=== PATIENT | female | born 1985 | race African-American/Black ===

== ENCOUNTER 2019-09-29 19:43 | Emergency (ER) | payer OTHER, SELFPAY ==
--- OUTSIDE RECORDS SUMMARY | 2019-09-29 19:45 | XMS REPORT ---
:1985 [facility] Address [address] [place] [address] [address]. [address] [place] [address] Care Team Providers Name Role Phone Unavailable Unavailable Unavailable Problems This patient has no known problems. Allergies, Adverse Reactions, Alerts This patient has no known allergies or adverse reactions. Medications This patient has no known medications.
[2019-09-29] MEDS ORDERED: dexAMETHasone 10 MG/ML VIAL ONE (20:11)
--- NOTE | 2019-09-29 20:29 | ER ---
Nurse's Notes [facility] Name: Max Johnson Age: 33 yrs Sex: Female : 1985 Arrival Date: 09/29/2019 Time: 19:45 Bed 26 Private MD: Diagnosis: Dental caries;Localized allergic reaction Presentation: 09/29 19:47 Presenting complaint: Patient states: She took an unknown antibiotic from a friend an aj1 hour ago and now her lower lip is swollen. Denies shortness of breath. Transition of care: patient was not received from another setting of care. Onset: The symptoms/episode began/occurred suddenly. Anaphylaxis evaluation. Onset of symptoms was September 29, 2019. Risk Assessment: Do you want to hurt yourself or someone else? Patient reports no desire to harm self or others. Initial Sepsis Screen: Does the patient meet any 2 criteria? No. Patient's initial sepsis screen is negative. Does the patient have a suspected source of infection? No. Patient's initial sepsis screen is negative. Care prior to arrival: None. 19:47 Method Of Arrival: Ambulatory aj 19:47 Acuity: FATMATA 3 aj1 Triage Assessment: 19:50 General: Appears in no apparent distress. comfortable, Behavior is calm, cooperative, aj1 appropriate for age. Pain: Denies pain. Neuro: Level of Consciousness is awake, alert, obeys commands. Cardiovascular: Patient's skin is warm and dry. Respiratory: Airway is patent Respiratory effort is even, unlabored, Respiratory pattern is regular, symmetrical. 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 - Social history:: Smoking status: Patient/guardian denies using tobacco. - Ebola Screening: : Patient denies travel to an Ebola-affected area in the 21 days before illness onset. - Family history:: not pertinent. - Hospitalizations: : No recent hospitalization is reported. Screenin:43 Abuse screen: Denies threats or abuse. Nutritional screening: No deficits noted. sr5 Tuberculosis screening: No symptoms or risk factors identified. Fall Risk None identified. Assessment: 20:43 Reassessment: Upon discharge, pt remains AA\\T\\Ox4, equal unlabored resp, skin sr5 warm/dry/nc, steady gait out of ER. 20:50 Reassessment: When cleaning room, a $1 bill found. Patient's home phone number called sr5 with message saying "caller unavailable". Vital Signs: 19:50 BP 150 / 93; Pulse 89; Resp 18; Temp 97.0; Pulse Ox 100% on R/A; Weight 72.12 kg (R); aj1 Height 5 ft. 9 in. (175.26 cm) (R); Pain 0/10; 19:50 Body Mass Index 23.48 (72.12 kg, 175.26 cm) aj1 ED Course: 19:45 Patient arrived in ED. cl3 19:50 Triage completed. aj1 19:50 Arm band placed on Patient placed in an exam room. aj1 19:53 Jensen Shaffer MD is Attending Physician. rn 19:56 Geraldo Jones RN is Primary Nurse. sr5 20:43 Patient has correct armband on for positive identification. sr5 20:43 No provider procedures requiring assistance completed. Patient did not have IV access sr5 during this emergency room visit. Administered Medications: 20:13 Drug: Decadron 10 mg Route: IM; Site: right deltoid; sr5 20:45 Follow up: Response: No adverse reaction sr5 20:13 Drug: Clindamycin 300 mg Route: PO; sr5 20:45 Follow up: Response: No adverse reaction sr5 Outcome: 20:28 Discharge ordered by . rn 20:43 Patient left the ED. sr5 20:43 Discharged to home ambulatory, with family. sr5 20:43 Condition: good 20:43 Discharge instructions given to patient, family, Instructed on discharge instructions, follow up and referral plans. Demonstrated understanding of instructions, follow-up care, medications, Prescriptions given X 2. Signatures: Carisa Patel RN RN aj1 Jensen Shaffer MD MD rn Resecker, Sam, RN RN sr5 Félix Draper cl3
--- NOTE | 2019-09-29 20:29 | EDPHYS ---
Physician Documentation [facility] Name: Max Johnson Age: 33 yrs Sex: Female : 1985 Arrival Date: 09/29/2019 Time: 19:45 Bed 26 Private MD: ED Physician Jensen Shaffer HPI: 09/29 20:18 This 33 yrs old Black Female presents to ER via Ambulatory with complaints of Allergic rn Reaction. 20:18 The patient presents with itching, localized swelling. Onset: The symptoms/episode rn began/occurred today. Associated signs and symptoms: Pertinent positives: swelling, Pertinent negatives: fever, rash, shortness of breath. Possible causes: The patient has no known obvious cause for the symptoms. Severity of symptoms: At their worst the symptoms were mild in the emergency department the symptoms are unchanged. The patient has not experienced similar symptoms in the past. Reports noticed "something" on inner lower lip, was bothering her, and now left lower lip swollen, not painful. Not sure if got stung or bit her lip, no previous allergic reaction. No fever. No trauma. Reports lip itches. Also reports mild swelling to left jaw and molar pain on that side, but that has been going on for a week or more.. 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 - Social history:: Smoking status: Patient/guardian denies using tobacco. - Ebola Screening: : Patient denies travel to an Ebola-affected area in the 21 days before illness onset. - Family history:: not pertinent. - Hospitalizations: : No recent hospitalization is reported. ROS: 20:18 Constitutional: Negative for fever, chills, and weight loss, Eyes: Negative for injury, rn pain, redness, and discharge, ENT: + left lower lip swelling Neck: Negative for injury, pain, and swelling, Cardiovascular: Negative for chest pain, palpitations, and edema, Respiratory: Negative for shortness of breath, cough, wheezing, and pleuritic chest pain, Abdomen/GI: Negative for abdominal pain, nausea, vomiting, diarrhea, and constipation, MS/Extremity: Negative for injury and deformity, Neuro: Negative for headache, weakness, numbness, tingling, and seizure. Exam: 20:18 Constitutional: This is a well developed, well nourished patient who is awake, alert, rn and in no acute distress. Head/Face: Normocephalic, atraumatic. ENT: No intraoral swelling, no stridor, no tongue swelling, + isolated 2 cm of left lower lip swelling. No erythema/warmth/fluctuance. + poor dentition. + mild left buccal space swelling without fluctuance. Neck: Trachea midline, no thyromegaly or masses palpated, and no cervical lymphadenopathy. Supple, full range of motion without nuchal rigidity, or vertebral point tenderness. No Meningismus. Cardiovascular: Regular rate and rhythm. No pulse deficits. Respiratory: No increased work of breathing, no retractions or nasal flaring. Skin: Warm, dry with normal turgor. Normal color with no rashes, no lesions, and no evidence of cellulitis. MS/ Extremity: Pulses equal, no cyanosis. Neurovascular intact. Full, normal range of motion. Equal circumference. Neuro: Awake and alert, GCS 15, oriented to person, place, time, and situation. Cranial nerves II-XII grossly intact. Motor strength 5/5 in all extremities. Sensory grossly intact. Cerebellar exam normal. Normal gait. Vital Signs: 19:50 BP 150 / 93; Pulse 89; Resp 18; Temp 97.0; Pulse Ox 100% on R/A; Weight 72.12 kg (R); aj1 Height 5 ft. 9 in. (175.26 cm) (R); Pain 0/10; 19:50 Body Mass Index 23.48 (72.12 kg, 175.26 cm) aj1 MDM: 19:53 Patient medically screened. rn 20:27 Differential diagnosis: periodontal infection, localized allergic reaction, localized rn lip trauma. Data reviewed: vital signs, nurses notes, and as a result, I will discharge patient. Counseling: I had a detailed discussion with the patient and/or guardian regarding: the historical points, exam findings, and any diagnostic results supporting the discharge/admit diagnosis, the need for outpatient follow up, to return to the emergency department if symptoms worsen or persist or if there are any questions or concerns that arise at home. Special discussion: I discussed with the patient/guardian in detail that at this point there is no indication for admission to the hospital. It is understood, however, that if the symptoms persist or worsen the patient needs to return immediately for re-evaluation. Based on the history and exam findings, there is no indication for further emergent testing or inpatient evaluation. I discussed with the patient/guardian the need to see a dentist for further evaluation of the symptoms. Administered Medications: 20:13 Drug: Decadron 10 mg Route: IM; Site: right deltoid; sr5 20:45 Follow up: Response: No adverse reaction sr5 20:13 Drug: Clindamycin 300 mg Route: PO; sr5 20:45 Follow up: Response: No adverse reaction sr5 Disposition: 09/29/19 20:28 Discharged to Home. Impression: Dental caries, Localized allergic reaction. - Condition is Stable. - Discharge Instructions: Dental Pain, Angioedema. - Prescriptions for Clindamycin HCl 300 mg Oral Capsule - take 1 capsule by ORAL route every 6 hours for 10 days; 40 capsule. Prednisone 20 mg Oral Tablet - take 3 tablet by ORAL route once daily for 5 days; 15 tablet. - Medication Reconciliation Form, Thank You Letter, Antibiotic Education, Prescription Opioid Use form. - Follow up: Private Physician; When: As needed; Reason: Recheck today's complaints, Re-evaluation by your physician. - Problem is new. - Symptoms have improved. Signatures: Carisa Patel RN RN aj1 Jensen Shaffer MD MD rn Resecker, Sam, RN RN sr5 Corrections: (The following items were deleted from the chart) 20:28 20:27 Special discussion: I discussed with the patient/guardian in detail that at this rn point there is no indication for admission to the hospital. It is understood, however, that if the symptoms persist or worsen the patient needs to return immediately for re-evaluation. rn 20:43 20:28 09/29/2019 20:28 Discharged to Home. Impression: Dental caries; Localized sr5 allergic reaction. Condition is Stable. Forms are Medication Reconciliation Form, Thank You Letter, Antibiotic Education, Prescription Opioid Use. Follow up: Private Physician; When: As needed; Reason: Recheck today's complaints, Re-evaluation by your physician. Problem is new. Symptoms have improved. rn
[2019-09-29 20:52] VITALS: BP 150/93; TEMP 97; O2SAT 100
== END 2019-09-29 20:43 | disposition home or self-care (01) ==
LOC: ER 19:43
DX: K02.9 Dental caries, unspecified (principal)
CPT/HCPCS: 96372; 99283; J1100

== ENCOUNTER 2020-09-12 20:06 | Emergency (ER) | payer OTHER, SELFPAY ==
--- OUTSIDE RECORDS SUMMARY | 2020-09-12 20:08 | XMS REPORT | Continuity of Care Document ---
:1985 Author Organization [facility] t Address [address] [place] [address] [address]. [address] [place] [address] Care Team Providers Name Role Phone Unavailable Unavailable Unavailable Problems This patient has no known problems. Allergies, Adverse Reactions, Alerts This patient has no known allergies or adverse reactions. Medications This patient has no known medications. Procedures This patient has no known procedures. Results This patient has no known results.
[2020-09-12] MEDS ORDERED: dexAMETHasone 10 MG/ML VIAL ONE (21:33)
[2020-09-12] MEDS ORDERED: FAMOTIDINE 20 MG TAB ONE (21:33)
[2020-09-12] MEDS ORDERED: DIPHENHYDRAMINE 50 MG/ML VIAL ONE (21:33)
--- NOTE | 2020-09-12 21:36 | ER ---
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 Took Benadryl, no ca1 relief. Denies difficulty swallowing and breathing. Coronavirus screen: Client denies travel out of the [place] in the last 14 days. At this time, the client does not indicate any symptoms associated with coronavirus-19. Ebola Screen: Patient negative for fever greater than or equal to 101.5 degrees Fahrenheit, and additional compatible Ebola Virus Disease symptoms Patient denies exposure to infectious person. Patient denies travel to an Ebola-affected area in the 21 days before illness onset. No symptoms or risks identified at this time. Initial Sepsis Screen: Does the patient meet any 2 criteria? No. Patient's initial sepsis screen is negative. Does the patient have a suspected source of infection? No. Patient's initial sepsis screen is negative. Risk Assessment: Do you want to hurt yourself or someone else? Patient reports no desire to harm self or others. Onset of symptoms was September 12, 2020. 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 - Social history:: Smoking status: Patient denies any tobacco usage or history of. Screenin:08 Abuse screen: Denies threats or abuse. Denies injuries from another. Nutritional mg2 screening: No deficits noted. Tuberculosis screening: No symptoms or risk factors identified. Fall Risk None identified. Assessment: 22:07 General: Appears in no apparent distress. comfortable, Behavior is calm, cooperative. mg2 Pain: Denies pain. Neuro: Level of Consciousness is awake, alert, obeys commands, Oriented to person, place, time, situation. Cardiovascular: Capillary refill < 3 seconds Patient's skin is warm and dry. Respiratory: Airway is patent Respiratory effort is even, unlabored, Respiratory pattern is regular, symmetrical. GI: No signs and/or symptoms were reported involving the gastrointestinal system. : No signs and/or symptoms were reported regarding the genitourinary system. EENT: No signs and/or symptoms were reported regarding the EENT system. Derm:. Musculoskeletal: Swelling present in mouth. Vital Signs: 20:16 BP 131 / 78; Pulse 92; Resp 17 S; Temp 98.3(TE); Pulse Ox 100% on R/A; Weight 82.55 kg ca1 (R); Height 5 ft. 7 in. (170.18 cm) (R); Pain 0/10; 22:00 BP 128 / 80; Pulse 80; Resp 18; Temp 98; Pulse Ox 100% on R/A; mg2 20:16 Body Mass Index 28.50 (82.55 kg, 170.18 cm) ca1 ED Course: 20:07 Patient arrived in ED. cl3 20:18 Triage completed. ca1 20:19 Arm band placed on right wrist. ca1 21:03 Hunter Plaza, ALONDRA is PHCP. pm1 21:03 Jensen Shaffer MD is Attending Physician. pm1 21:17 Louie Aragon, MELY is Primary Nurse. mg2 22:08 Patient has correct armband on for positive identification. mg2 22:08 No provider procedures requiring assistance completed. Patient did not have IV access mg2 during this emergency room visit. Administered Medications: 21:24 Drug: Benadryl 25 mg Route: IM; Site: right deltoid; mg2 22:09 Follow up: Response: No adverse reaction; Marked relief of symptoms mg2 21:24 Drug: Decadron 10 mg Route: IM; Site: left deltoid; mg2 22:08 Follow up: Response: No adverse reaction; Marked relief of symptoms mg2 21:24 Drug: Pepcid 20 mg Route: PO; mg2 22:08 Follow up: Response: No adverse reaction; Marked relief of symptoms mg2 Outcome: 21:36 Discharge ordered by . pm1 22:08 Discharged to home ambulatory. mg2 22:08 Condition: stable 22:08 Discharge instructions given to patient, Instructed on discharge instructions, follow up and referral plans. medication usage, Demonstrated understanding of instructions, follow-up care, medications, Prescriptions given X 3. 22:09 Patient left the ED. mg2 Signatures: Hunter Plaza, ALONDRA SPORTS ATTORNEY pm1 Louie Aragon RN RN mg2 Flor Dwyer RN RN ca1 Félix Draper cl3
--- NOTE | 2020-09-12 21:36 | EDPHYS ---
Physician Documentation [facility] Name: Max Johnson Age: 34 yrs Sex: Female : 1985 Arrival Date: 09/12/2020 Time: 20:07 Bed 19 Private MD: ED Physician Jensen Shaffer HPI: 09/12 20:15 This 34 yrs old Black Female presents to ER via Ambulatory with complaints of Lips pm1 Swelling. 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 - Social history:: Smoking status: Patient denies any tobacco usage or history of. Vital Signs: 20:16 BP 131 / 78; Pulse 92; Resp 17 S; Temp 98.3(TE); Pulse Ox 100% on R/A; Weight 82.55 kg ca1 (R); Height 5 ft. 7 in. (170.18 cm) (R); Pain 0/10; 22:00 BP 128 / 80; Pulse 80; Resp 18; Temp 98; Pulse Ox 100% on R/A; mg2 20:16 Body Mass Index 28.50 (82.55 kg, 170.18 cm) ca1 MDM: 21:15 Patient medically screened. pm1 21:35 Data reviewed: vital signs. Data interpreted: Pulse oximetry: on room air is 100 %. pm1 Interpretation: normal. Counseling: I had a detailed discussion with the patient and/or guardian regarding: the historical points, exam findings, and any diagnostic results supporting the discharge/admit diagnosis, the need for outpatient follow up, to return to the emergency department if symptoms worsen or persist or if there are any questions or concerns that arise at home. Administered Medications: 21:24 Drug: Benadryl 25 mg Route: IM; Site: right deltoid; mg2 22:09 Follow up: Response: No adverse reaction; Marked relief of symptoms mg2 21:24 Drug: Decadron 10 mg Route: IM; Site: left deltoid; mg2 22:08 Follow up: Response: No adverse reaction; Marked relief of symptoms mg2 21:24 Drug: Pepcid 20 mg Route: PO; mg2 22:08 Follow up: Response: No adverse reaction; Marked relief of symptoms mg2 Disposition: 22:13 Co-signature as Attending Physician, Jensen Shaffer MD. rn Disposition: 09/12/20 21:36 Discharged to Home. Impression: Angioneurotic edema. - Condition is Stable. - Discharge Instructions: Angioedema. - Prescriptions for Benadryl 25 mg Oral Capsule - take 1 capsule by ORAL route every 6 hours As needed; 30 tablet. Pepcid 20 mg Oral Tablet - take 1 tablet by ORAL route every 12 hours for 10 days; 20 tablet. Prednisone 20 mg Oral Tablet - take 3 tablet by ORAL route once daily for 5 days; 15 tablet. - Medication Reconciliation Form, Thank You Letter, Antibiotic Education, Prescription Opioid Use form. - Follow up: Emergency Department; When: As needed; Reason: Worsening of condition. Follow up: Private Physician; When: 2 - 3 days; Reason: Recheck today's complaints, Continuance of care, Re-evaluation by your physician. - Problem is new. - Symptoms have improved. Addendum: 09/29/2020 15:32 Addendum: HPI: this 34 yrs old Black Female presents to the ED via ambulatory with p m1 complaints of Lips Swelling. 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 Location: Upper and lower lip. Greater on upper lip. Associated signs and symptoms: Negative for shortness of breath, chest pain, sore throat, rash. Severity: No change since onset. Home treatment: OTC Benadryl prior to arrival. Similar Symptoms: Has never had lip swelling in the past. She has not been recently seen by a physcian. 15:40 Addendum: ROS: Constitutional: Negative for fever, chills, and weight loss, Eyes: p m1 Negative for injury, pain, redness, and discharge, ENT: Negative for injury, pain, discharge, sore throat, ear pain, Positive for swelling of upper and lower lip. Back: Negative for injury and pain, Skin: Negative for injury, rash, and discoloration. Cardiovascular: Negative for chest pain. Respiratory: Negative for cough, shortness of breath, Abdomen/GI: Negative for abdominal pain, N/V/D, and constipation, Neuro: negative for dizziness, headache. 15:52 Addendum: Exam: Constitutional: This is a well developed, well nourished patient who is p m1 awake, alert, and in no acute distress. Head/Face: Normocephalic, atraumatic. Skin: Warm, dry with normal turgor. Normal color with no rashes, no lesions, and evidence of cellulitis. Mild swelling to medial aspect of upper lip and trace swelling to medial aspect of lower lip. ENT: External ears, ear canals, tympanic membranes without any acute changes bilaterally. Pharynx without any swelling or erythema. MS/Extremity: Pulses equal, no cyanosis. Neurovascular intact: FROM, Cardiovascular: Exam negative for acute changes, Rate: normal, Rhythm: regular, Pulses: no pulse deficits are appreciated, edema absent. Respiratory: the patient does not display signs of respiratory distress, Breath sounds clear to auscultation bilaterally, Neuro: exam negative for acute changes, Orientation: is normal, mentation is normal, Motor is normal. moves all fours. Signatures: Jensen Shaffer MD MD rn Marinas, Patrick, NP PATIENT REGISTRATION CLERK pm1 Louie Aragon RN RN mg2 Flor Dwyer RN RN ca1 Corrections: (The following items were deleted from the chart) 09/12 22:09 21:36 09/12/2020 21:36 Discharged to Home. Impression: Angioneurotic edema. Condition mg2 is Stable. Forms are Medication Reconciliation Form, Thank You Letter, Antibiotic Education, Prescription Opioid Use. Follow up: Emergency Department; When: As needed; Reason: Worsening of condition. Follow up: Private Physician; When: 2 - 3 days; Reason: Recheck today's complaints, Continuance of care, Re-evaluation by your physician. Problem is new. Symptoms have improved. pm1
[2020-09-15 13:51] VITALS: O2SAT 100
[2020-09-15 13:52] VITALS: BP 128/80; TEMP 98
== END 2020-09-12 22:09 | disposition home or self-care (01) ==
LOC: ER 20:06
DX: T78.3XXA Angioneurotic edema, initial encounter (principal)
CPT/HCPCS: 96372; 99283; J1200; J1100

== ENCOUNTER 2021-02-28 20:32 | Emergency (ER) | payer OTHER ==
--- OUTSIDE RECORDS SUMMARY | 2021-02-28 20:34 | XMS REPORT | Continuity of Care Document ---
:1985 Author Organization [facility] t Address [address] [place] [address] [address]. [address] [place] [address] Care Team Providers Name Role Phone Unavailable Unavailable Unavailable Problems This patient has no known problems. Allergies, Adverse Reactions, Alerts This patient has no known allergies or adverse reactions. Medications This patient has no known medications. Procedures This patient has no known procedures. Results This patient has no known results.
[2021-02-28 23:56] LABS: Absolute Lymphocytes (CBC) 1.2 K/uL (0.7-4.9); Basophils % 0.7 % (0-1.3); Hematocrit 35.8 % (36.0-45.0); Lymphocytes % 14.7 % (15.3-44.8); MPV 8.7 fL (7.6-11.3); RBC Red Blood Cell Count 3.92 M/uL (3.86-4.86)
[2021-03-01 00:04] LABS: Protime INR 1.13
[2021-03-01 00:33] LABS: BUN Blood Urea Nitrogen 6 mg/dL (7-18); Bicarbonate 30 mmol/L (21-32); Glucose Level 113 mg/dL (74-106); Potassium 3.1 mmol/L (3.5-5.1); Sodium Level 139 mmol/L (136-145)
--- NOTE | 2021-03-01 01:48 | ER ---
Nurse's Notes [facility] Name: Max Johnson Age: 35 yrs Sex: Female : 1985 Arrival Date: 02/28/2021 Time: 21:42 Bed 20 Private MD: Diagnosis: Facial Cellulitis;Dental abscess Presentation: 02/28 22:33 Chief complaint: Patient states: she started having left jaw pain yesterday and woke up bb today with her face swollen she thinks she has an abscess. Coronavirus screen: At this time, the client does not indicate any symptoms associated with coronavirus-19. Ebola Screen: No symptoms or risks identified at this time. Initial Sepsis Screen: Does the patient meet any 2 criteria? Temp <36.0*C (96.8*F)) or > 38.3*C (100.9*F). HR > 90 bpm. Yes Does the patient have a suspected source of infection? Yes: Bone or joint infection. Risk Assessment: Do you want to hurt yourself or someone else? Patient reports no desire to harm self or others. Onset of symptoms was February 27, 2021. 22:33 Method Of Arrival: Ambulatory bb 22:33 Acuity: FATMATA 3 bb Triage Assessment: 22:35 General: Appears uncomfortable, Behavior is calm, cooperative. Pain: Denies pain. EENT: bb left jaw swollen unable to open mouth all the way. Neuro: Level of Consciousness is awake, alert, obeys commands, Oriented to person, place, time, situation. Cardiovascular: Capillary refill < 3 seconds Patient's skin is warm and dry. Respiratory: Respiratory effort is even, unlabored, Respiratory pattern is regular. Derm: Skin is dry, Skin is normal, Skin temperature is warm. Musculoskeletal: Circulation, motion, and sensation intact. 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 - Social history:: Smoking status: Patient denies any tobacco usage or history of. Patient uses alcohol, occasionally. Patient/guardian denies using street drugs. Screenin:49 Abuse screen: Denies threats or abuse. Nutritional screening: No deficits noted. ea Tuberculosis screening: No symptoms or risk factors identified. Fall Risk IV access (20 points). Assessment: 23:49 General: Appears uncomfortable, Behavior is calm, cooperative, appropriate for age. ea Pain: Complains of pain in left side of head. Neuro: Level of Consciousness is awake, alert, obeys commands, Oriented to person, place, time. Cardiovascular: Patient's skin is warm and dry. Respiratory: Airway is patent Respiratory effort is even, unlabored, Respiratory pattern is regular, symmetrical. Derm: swelling to left jaw. 03/01 01:59 Reassessment: Patient and/or family updated on plan of care and expected duration. Pain ea level reassessed. Patient is alert, oriented x 3, equal unlabored respirations, skin warm/dry/pink. 03:30 Reassessment: Patient and/or family updated on plan of care and expected duration. Pain ea level reassessed. Patient is alert, oriented x 3, equal unlabored respirations, skin warm/dry/pink. 04:52 Reassessment: Patient and/or family updated on plan of care and expected duration. Pain ea level reassessed. Patient is alert, oriented x 3, equal unlabored respirations, skin warm/dry/pink. Discharge instruction given to patient verbalized the understanding of instruction. Pt left ED ambulatory accompanied by family. Vital Signs: 02/28 22:33 BP 137 / 76; Pulse 122; Resp 16 S; Temp 101(TE); Pulse Ox 97% on R/A; Weight 81.65 kg bb (R); Height 5 ft. 9 in. (175.26 cm) (R); Pain 0/10; 03/01 01:32 BP 126 / 93; Pulse 94; Resp 16 S; Temp 98.6(O); Pulse Ox 100% on R/A; bb 03:30 BP 128 / 78; Pulse 90; Resp 18; Pulse Ox 99% ; ea 04:45 BP 120 / 76; Pulse 90; Resp 18; Pulse Ox 99% ; ea 02/28 22:33 Body Mass Index 26.58 (81.65 kg, 175.26 cm) bb ED Course: 02/28 21:42 Patient arrived in ED. cf2 22:35 Triage completed. bb 22:35 Arm band placed on Patient placed in an exam room, on a stretcher, on pulse oximetry. bb 22:39 Prashanth Mendiola PA is PHCP. cp 22:39 Jensen Shaffer MD is Attending Physician. cp 23:43 Inserted saline lock: 22 gauge in right antecubital area, using aseptic technique. ea Blood collected. 23:49 Cristina Martinez, MELY is Primary Nurse. ea 23:50 Patient has correct armband on for positive identification. Bed in low position. Call ea light in reach. Side rails up X2. 02 01:11 CT Facial Bones W/ Con \T\ Mpr In Process Unspecified. EDMS 01:14 initiated a transfer with Radha Christiano from [facility] Transfer [place]. mw2 01:23 [facility] denied due to capacity. mw2 01:28 initiated a transfer with Shireen from [facility] Transfer [place]. mw2 01:58 [facility] denied due to capacity. mw2 02:00 No provider procedures requiring assistance completed. Patient transferred, IV remains ea in place. 02:14 initiated a transfer with Marcos from [facility] Transfer Center. mw2 02:25 [facility] denied due to capacity. mw2 02:26 initiated a transfer with Brianna from [facility]. [facility] is at saturation. mw2 02:30 initiated a transfer with S[facility] from [facility] Transfer [place]. [facility] denied due to mw2 capacity. 02:34 initiated a transfer with Es from [facility] Transfer [place]. They don't have OMF mw2 or any service that studies the face. Administered Medications: 02/28 23:50 Drug: NS 0.9% 1000 ml Route: IV; Rate: 1 bolus; Site: right antecubital; ea 03/01 02:00 Follow up: Response: No adverse reaction; IV Status: Completed infusion; IV Intake: ea 1000ml 02/28 23:50 Drug: morphine 4 mg Route: IVP; Site: right antecubital; ea 03/01 00:06 Follow up: Response: No adverse reaction ea 00:04 Drug: Tylenol 1000 mg Route: PO; ea 02:00 Follow up: Response: No adverse reaction ea 00:04 Drug: Clindamycin 900 mg Route: IVPB; Infused Over: 30 mins; Site: right antecubital; ea 01:35 Follow up: Response: No adverse reaction; IV Status: Completed infusion ea 03:46 Drug: fentaNYL (PF) 50 mcg Route: IVP; Site: right antecubital; ea 04:55 Follow up: Response: No adverse reaction ea 04:45 Drug: fentaNYL (PF) 25 mcg Route: IVP; Site: right antecubital; ea 04:55 Follow up: Response: Medication administered at discharge. ea Intake: 02:00 IV: 1000ml; Total: 1000ml. ea Outcome: 01:47 ER care complete, transfer ordered by MD. cp 02:00 Instructed on the need for transfer, Demonstrated understanding of instructions. ea 03:49 Discharge ordered by MD. rn 04:52 Discharged to home ambulatory, with family. ea 04:52 Condition: stable 04:55 Patient left the ED. ea Signatures: Dispatcher [employer] Nita Paul RN RN bb Nieto, Roman, MD MD rn Page, Corey, PA PA cp Antunez, Elena, RN RN ea [place]brook, MyKena 2 Madyson Paulino 2
--- NOTE | 2021-03-01 01:48 | EDPHYS ---
Physician Documentation [facility] Name: Max Johnson Age: 35 yrs Sex: Female : 1985 Arrival Date: 02/28/2021 Time: 21:42 Bed 20 Private MD: ED Physician Jensen Shaffer HPI: 02/28 23:00 This 35 yrs old Black Female presents to ER via Ambulatory with complaints of Facial cp Swelling, Abscess. 23:00 The patient presents with pain. cp 23:00 The problem is located in the left lower back molar and left lower jaw. Onset: The cp symptoms/episode began/occurred yesterday, and became worse this morning. Duration: The symptoms are continuous, and are steadily getting worse. Associated signs and symptoms: Pertinent positives: fever, inability to eat, left side facial swelling, Pertinent negatives: dysphagia, vomiting. 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 - Social history:: Smoking status: Patient denies any tobacco usage or history of. Patient uses alcohol, occasionally. Patient/guardian denies using street drugs. ROS: 23:05 Constitutional: Positive for fever, poor PO intake. cp 23:05 Eyes: Negative for injury, pain, redness, and discharge. cp 23:05 ENT: Positive for dental pain, Negative for ear pain, difficulty swallowing, difficulty handling secretions. 23:05 Neck: Negative for pain with movement, pain at rest, stiffness. 23:05 Cardiovascular: Negative for chest pain. 23:05 Respiratory: Negative for cough, shortness of breath, wheezing. 23:05 Abdomen/GI: Negative for abdominal pain, vomiting, diarrhea, constipation. 23:05 Skin: Positive for swelling, of the left side of face. 23:05 Neuro: Negative for altered mental status, headache, weakness. 23:05 All other systems are negative. Exam: 23:10 Constitutional: The patient appears in no acute distress, alert, awake, cp non-diaphoretic, non-toxic, well developed, well nourished. 23:10 Head/face: Noted is swelling, that is moderate, of the left cheek and left jaw, cp tenderness, that is severe, of the left jaw. 23:10 Eyes: Periorbital structures: appear normal, Pupils: equal, round, and reactive to light and accomodation, Extraocular movements: intact throughout, Conjunctiva: normal, no exudate, no injection, Sclera: no appreciated abnormality, Lids and lashes: appear normal, bilaterally. 23:10 ENT: External ear(s): are unremarkable, Ear canal(s): are normal, clear, TM's: dullness, bilaterally, Nose: is normal, Mouth: Lips: moist, Oral mucosa: moist, unable to open mouth due to pain and swelling, Posterior pharynx: Airway: no evidence of obstruction, patent. 23:10 Neck: ROM/movement: is normal, is supple, no meningismus, no nuchal rigidity. 23:10 Chest/axilla: Inspection: normal. 23:10 Cardiovascular: Rate: tachycardic, Rhythm: regular. 23:10 Respiratory: the patient does not display signs of respiratory distress, Respirations: normal, no use of accessory muscles, no retractions, labored breathing, is not present, Breath sounds: are clear throughout, no decreased breath sounds, no stridor, no wheezing. 23:10 Abdomen/GI: Exam negative for discomfort, distension, guarding, Inspection: abdomen appears normal. 23:10 Skin: no rash present. 23:40 ECG was reviewed by the Attending Physician. cp Vital Signs: 22:33 BP 137 / 76; Pulse 122; Resp 16 S; Temp 101(TE); Pulse Ox 97% on R/A; Weight 81.65 kg bb (R); Height 5 ft. 9 in. (175.26 cm) (R); Pain 0/10; 06/02 01:32 BP 126 / 93; Pulse 94; Resp 16 S; Temp 98.6(O); Pulse Ox 100% on R/A; bb 03:30 BP 128 / 78; Pulse 90; Resp 18; Pulse Ox 99% ; ea 04:45 BP 120 / 76; Pulse 90; Resp 18; Pulse Ox 99% ; ea 02/28 22:33 Body Mass Index 26.58 (81.65 kg, 175.26 cm) bb Procedures: 03:45 I \T\ D: Incision and drainage was performed for an abscess of the left left rn perimandibular region Incised with 22g needle. Drained moderate amount purulent fluid. serosanguinous fluid. the patient tolerated the procedure well, Used viscous lidocaine and needle aspirated left chula-mandibular abscess.. MDM: 02/28 22:46 Patient medically screened. cp 23:00 Differential diagnosis: dental caries, dental abscess, pericoronitis, gingivostomatitis.cp 03/01 01:44 Data reviewed: vital signs, nurses notes, lab test result(s), EKG, radiologic studies, cp CT scan, I have discussed the patient's presentation/case with the attending Emergency Department Physician;. Test interpretation: by ED physician or midlevel provider: ECG. Counseling: I had a detailed discussion with the patient and/or guardian regarding: the historical points, exam findings, and any diagnostic results supporting the discharge/admit diagnosis, lab results, radiology results, the need to transfer to another facility, [facility] does not immediately have the required specialist. 03:45 ED course: Attempted transfer for OMFS, unable to transfer given all systems around us rn at capacity or do not have OMFS. Tried [facility], [facility] system, [facility], [facility], [facility] system. Spoke with patient, decision made to aspirate abscess and cover with abx. Pt is going to f/u with dentist today. Cannot admit here either without facial coverage, explained all of this to patient and understands. Will dc home with double abx coverage and return precautions.. 03:45 Differential diagnosis: abscess, cellulitis. rn 02/28 22:52 Order name: CBC with Diff cp 02/28 22:52 Order name: BMP cp 02/28 22:52 Order name: PT-INR cp 02/28 22:52 Order name: Procalcitonin cp 02/28 22:52 Order name: Lactate cp 02/28 22:52 Order name: Blood Culture Adult (2) cp 02/28 22:52 Order name: CBC with Automated Diff; Complete Time: 00:39 EDMS 03/01 00:40 Interpretation: Normal except: HGB 11.9; HCT 35.8; UMAIR% 76.4; LYM% 14.7. cp 02/28 22:52 Order name: Basic Metabolic Panel; Complete Time: 00:39 EDMS 03/01 00:40 Interpretation: Normal except: K 3.1; GLUC 113; BUN 6. cp 02/28 22:52 Order name: Protime (+INR); Complete Time: 00:39 EDMS 02/28 22:52 Order name: Procalcitonin; Complete Time: 01:30 EDMS 02/28 22:53 Order name: Lactate; Complete Time: 00:39 EDMS 02/28 22:53 Order name: Blood Culture EDMS 03/01 02:35 Order name: SARS-COV-2 RT PCR EDMS 02/28 22:52 Order name: CT Facial Bones W/ Con \T\ Mpr cp 03/01 03:47 Order name: Wound Culture ea EC/01 23:40 Rate is 104 beats/min. Rhythm is regular. VA interval is normal. QRS interval is cp normal. QT interval is normal. T waves are Inverted in lead aVR. Interpreted by me. Reviewed by me. Administered Medications: 23:50 Drug: NS 0.9% 1000 ml Route: IV; Rate: 1 bolus; Site: right antecubital; ea 03/01 02:00 Follow up: Response: No adverse reaction; IV Status: Completed infusion; IV Intake: ea 1000ml 02/28 23:50 Drug: morphine 4 mg Route: IVP; Site: right antecubital; ea 03/01 00:06 Follow up: Response: No adverse reaction ea 00:04 Drug: Tylenol 1000 mg Route: PO; ea 02:00 Follow up: Response: No adverse reaction ea 00:04 Drug: Clindamycin 900 mg Route: IVPB; Infused Over: 30 mins; Site: right antecubital; ea 01:35 Follow up: Response: No adverse reaction; IV Status: Completed infusion ea 03:46 Drug: fentaNYL (PF) 50 mcg Route: IVP; Site: right antecubital; ea 04:55 Follow up: Response: No adverse reaction ea 04:45 Drug: fentaNYL (PF) 25 mcg Route: IVP; Site: right antecubital; ea 04:55 Follow up: Response: Medication administered at discharge. ea Disposition: 05:00 Chart complete. cp 05:55 Co-signature as Attending Physician, Jensen Shaffer MD. rn Disposition: 03/01/21 03:49 Discharged to Home. Impression: Facial Cellulitis, Dental abscess. - Condition is Stable. - Discharge Instructions: Cellulitis, Adult, Dental Abscess. - Prescriptions for Clindamycin HCl 300 mg Oral Capsule - take 1 capsule by ORAL route every 6 hours for 10 days; 40 capsule. Bactrim DS 800- 160 mg Oral Tablet - take 1 tablet by ORAL route every 12 hours for 10 days; 20 tablet. Tramadol 50 mg Oral Tablet - take 1 tablet by ORAL route every 8 hours as needed; 12 tablet. - Medication Reconciliation Form, Thank You Letter, Antibiotic Education, Prescription Opioid Use form. - Follow up: Private Physician; When: Today; Reason: Recheck today's complaints, Re-evaluation by your physician. - Problem is new. - Symptoms have improved. Signatures: Dispatcher [employer] [facility] Nita Jaime RN RN bb Nieto, Roman, MD MD rn Page, Corey, PA PA cp Antunez, Elena, RN RN ea Corrections: (The following items were deleted from the chart) 01:55 01:21 CORONAVIRUS+MR.LAB.BRZ ordered. [facility] 03:45 01:47 03/01/2021 01:47 Transfer ordered to [facility]. Diagnosis is rn Disorder of teeth and supporting structures, unspecified - Tooth #17 abscess; Cellulitis of face. Reason for transfer: Higher level of care. Accepting physician is Doctor. Condition is Stable. Problem is new. Symptoms have improved. cp 04:55 03:49 03/01/2021 03:49 Discharged to Home. Impression: Facial Cellulitis; Dental ea abscess. Condition is Stable. Forms are Medication Reconciliation Form, Thank You Letter, Antibiotic Education, Prescription Opioid Use. Follow up: Private Physician; When: Today; Reason: Recheck today's complaints, Re-evaluation by your physician. Problem is new. Symptoms have improved. rn
[2021-03-01] MEDS ORDERED: LIDOCAINE VISCOUS 2% SOLN 15 ML UDC ONE (03:08)
[2021-03-01] MEDS ORDERED: FENTANYL CITR 100 MCG/2 ML ONE (03:54)
[2021-03-01 05:05] VITALS: TEMP 98.6
[2021-03-01 05:07] VITALS: O2SAT 99
[2021-03-01 05:08] VITALS: BP 120/76
--- NOTE | 2021-03-01 11:23 | RAD REPORT ---
EXAM DESCRIPTION: Facial Bones W Con Mpr RadLex: CT MAXILLOFACIAL WITH IV CONTRAST CLINICAL HISTORY: Facial swelling, left lower jaw pain. COMPARISON: None. TECHNIQUE: CT of the maxillofacial region was performed following administration of IV contrast. Axi al, coronal, and sagittal reconstructions were created and sent to PACS. This exam was performed according to our departmental dose-optimization program, which includes autom ated exposure control, adjustment of the mA and/or kV according to patient size and/or use of iterati ve reconstruction technique. FINDINGS: Rim-enhancing fluid collection along the lateral aspect of the left mandible measuring 2.9 x 1.6 x 2.6 cm. This is adjacent to a prominent periapical lucency about the roots of tooth 17, wher e there is a region of cortical thinning and possible cortical breakthrough (axial images 32 and 33). Additional regions of dental disease in the maxillary and mandibular arches, mostly involving the mo lars. Mild adjacent left submandibular lymphadenopathy, likely reactive. IMPRESSION: Abscess along the lateral aspect of the left mandible, likely related to a prominent per iapical lucency about the roots of tooth 17. Electronically signed by: Irma Norris MD 03/01/2021 1:23 AM CDT Due to temporary technical issues with the PACS/Fluency reporting system, reports are being signed by the in house radiologist without review as a courtesy to ensure prompt reporting. The interpreting r adiologist is fully responsible for the content of the report.
--- NOTE | 2021-03-01 11:55 | EKG ---
Test Date: 2021-02-28 Test Time: 23:32:09 Compressor Stations Superintendent: HELEN MEASUREMENT RESULTS: Intervals: Rate: 104 DC: 172 QRSD: 82 QT: 324 QTc: 426 [place]: P: 64 DC: 172 QRS: 53 T: 36 INTERPRETIVE STATEMENTS: Sinus tachycardia Possible Left atrial enlargement Borderline ECG No previous ECG available for comparison Electronically Signed On 03-01-21 11:53:35 CDT by Reid Welch
== END 2021-03-01 04:55 | disposition home or self-care (01) ==
LOC: ER 20:32
PROC: 0C94XZZ Drainage of Buccal Mucosa, External Approach (ICD-10-PCS; principal; 2021-03-01)
DX: K04.7 Periapical abscess without sinus (principal); L03.211 Cellulitis of face; Z20.822 Contact with and (suspected) exposure to COVID-19
CPT/HCPCS: 93005; 87040 ×2; 87070; 85025; 80048; 36415; 87205; 85610; 83605; 84145; 70487; 76377; 41800; U0003; Q9967; J3010; 96361; 96365; 96366; 96375; 99284

== ENCOUNTER 2024-08-09 17:17 | Emergency (ER) | payer OTHER, SELFPAY ==
[2024-08-09 18:48] LABS: Specific Gravity > 1.030 (1.005-1.030)
[2024-08-09 18:49] LABS: Specific Gravity > 1.030 (1.005-1.030); Sqamous Epithelial <5 /HPF (None Seen); Urine Bacteria None Seen /HPF (<20); Urine Bilirubin NEGATIVE (Negative); Urine Blood Negative (Negative); Urine Clarity Clear (Clear); Urine Color Light-Yellow (Yellow); Urine Crystals Unidentified Few /HPF (None Seen); Urine Culture Reflex Order NOT NEEDED; Urine Glucose NEGATIVE (Negative); Urine Ketones NEGATIVE (Negative); Urine Microscopic Reflex YN ORDER UMIC; Urine Mucus Slight /HPF (None Seen); Urine Nitrite NEGATIVE (Negative); Urine Protein TRACE (Negative); Urine Urobilinogen 1+ (Normal); Urine WBC <5 /HPF (<5); Urine WBC Clump Rare /HPF (None Seen); Urine Yeast (Budding) Trace /HPF (None Seen)
[2024-08-09] MEDS ORDERED: MORPHINE 4 MG/ML SYR ONE ×2 (19:14→23:01)
[2024-08-09 20:51] LABS: Absolute Eosinophils 0.1 K/uL (0-0.5); Absolute Lymphocytes (CBC) 1.6 K/uL (0.7-4.9); Absolute Monocytes 0.4 K/uL (0.1-1.3); Absolute Neutrophil 2.9 K/uL (1.8-8.0); Basophils % 0.9 % (0-1.3); Eosinophils % 1.5 % (0-4.4); Hemoglobin 12.1 g/dL (12.0-15.0); Lymphocytes % 32.7 % (15.3-44.8); MCH 30.6 pg (27.0-35.0); MCHC 33.6 g/dL (32.0-36.0); MCV 90.9 fL (80-100); MPV 8.2 fL (7.6-11.3); Monocytes % 7.5 % (3.3-12.3); Neutrophils % 57.4 % (41.7-73.7); Nucleated Red Blood Cells % 0.2 % (0-0); Platelets 228 thou/uL (152-406); RBC Red Blood Cell Count 3.96 M/uL (3.86-4.86); Red Cell Distribution Width 13.9 % (12.1-15.2)
[2024-08-09 21:04] LABS: Albumin 3.3 g/dL (3.4-5.0); Albumin/Globulin Ratio 0.8 (1.1-1.8); Anion Gap 5.7 mEq/L (5.0-15.0); Bilirubin Total 0.2 mg/dL (0.2-1.0); Globulin 4.2 g/dL (2.3-3.5); Potassium 3.7 mEq/L (3.5-5.1); Protein, Total 7.5 g/dL (6.4-8.2)
[2024-08-09] MEDS ORDERED: KETOROLAC 30 MG/ML INJ ONE (21:35)
[2024-08-09] MEDS ORDERED: CLINDAMYCIN 900MG/D5W 900 MG/50 ML IVPB IV ONE (21:35)
--- NOTE | 2024-08-09 21:53 | RAD REPORT ---
EXAMINATION: CT MAXILLOFACIAL WITH CONTRAST CLINICAL INDICATION: [facility] MAIN left mandible swelling Bed Name: 5 TECHNIQUE: Axial images were obtained through the facial bones and orbits following intravenous admin istration of iodine contrast. Sagittal and coronal reconstructions were created from the data. One or more of the following dose reduction techniques were used: Automated exposure control, adjustment of the mA and/or kV according to patient size, and/or iterative reconstruction. Unless otherwise specified, incidental findings do not require dedicated imaging follow-up. COMPARISON: No prior exam. FINDINGS: SOFT TISSUE: Crescentic ill-defined subperiosteal abscess present along the buccal surface of the lef t mandibular body, measuring 3 mm in thickness, and 1.5 cm in greatest axial dimension. This is centered near the outlet of the inferior alveolar canal, with a small punctate radiodense focus in th is region, see axial image 28/90. Soft tissue swelling and fat stranding extending along the fascial muscles and muscles of mastication, as well as the cutaneous soft tissues of the cheek on the left. BONES: No evidence of fracture, dislocation, or aggressive osseous lesions. Periapical collections al dangelo the anterior and posterior roots of the left mandibular posterior most molar, which approximates the course of the inferior alveolar canal. Some asymmetric sclerosis surrounds the canal throughout most of its course. Multiple other scattered periapical collections, most notably along the root remnant of the left second maxillary premolar. No lesion of the visualized skull base or santiago varium. ORBITS: The globes are intact. No intraorbital hemorrhage or mass. SINUSES: The paranasal sinuses and tympanomastoid cavities are predominantly clear. IMPRESSION: Ill-defined subperiosteal abscess measuring 3 mm in thickness along the buccal surface of the left ma ndibular body, centered near the outlet of the left inferior alveolar canal. Periapical collections most notably with collections along the roots of the left lingular posterior m ost molar, one of which approximates the course of the canal. The infection could be tracking along the canal. Another sizable collection present along the terminal tuft of the left maxillary second pr emolar.
[2024-08-09] MEDS ORDERED: LIDOCAINE 2% MPF 5 ML VIAL ONE (23:01)
--- NOTE | 2024-08-09 23:49 | EDPHYS ---
Physician Documentation [facility] Name: Max Johnson Age: 38 yrs Sex: Female : 1985 Arrival Date: 08/09/2024 Time: 17:17 Bed 5 Private MD: ED Physician Jensen Shaffer HPI: 08/09 18:00 This 38 yrs old Black Female presents to ER via Ambulatory with complaints of Toothache.cp 18:00 The patient presents with pain, left lower jaw swelling. Onset: The symptoms/episode cp began/occurred yesterday, and became worse today. Duration: The symptoms are continuous, and are steadily getting worse. Associated signs and symptoms: Pertinent negatives: chills, dysphagia, fever, inability to eat. Severity of symptoms: in the emergency department the symptoms are unchanged, despite home interventions. 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 - Infectious Disease History:: Denies. - Social history:: Smoking status: Patient denies any tobacco usage or history of. ROS: 18:05 Constitutional: Negative for body aches, chills, fever, poor PO intake, cp 18:05 Eyes: Negative for injury, pain, redness, and discharge, cp 18:05 ENT: Positive for dental pain, Negative for drainage from ear(s), ear pain, sore throat, difficulty swallowing, difficulty handling secretions, 18:05 Neck: Negative for pain with movement, pain at rest, stiffness, 18:05 Respiratory: Negative for cough, shortness of breath, wheezing, 18:05 Abdomen/GI: Negative for abdominal pain, vomiting, diarrhea, constipation, 18:05 Neuro: Negative for altered mental status, headache, weakness, 18:05 All other systems are negative, Exam: 18:10 Constitutional: The patient appears in no acute distress, alert, awake, non-toxic, well cp developed, well nourished, uncomfortable, 18:10 Head/face: Noted is swelling, that is mild, of the left mandible, tenderness, that is cp moderate, 18:10 Eyes: Periorbital structures: appear normal, Conjunctiva: normal, no exudate, no injection, Sclera: no appreciated abnormality, Lids and lashes: appear normal, bilaterally, 18:10 ENT: External ear(s): are unremarkable, Ear canal(s): are normal, clear, TM's: dullness, bilaterally, Nose: is normal, Mouth: Lips: moist, Oral mucosa: pink and intact, moist, Posterior pharynx: Airway: no evidence of obstruction, patent, Tonsils: are normal in appearance, swelling, is not appreciated, erythema, is not appreciated, exudate, is not appreciated, Dental exam: gum swelling, that is mild, specifically in the left outer lower, pain, that is moderate, specifically in the lower left third molar (#17), lower left second molar (#18) and lower left first molar (#19), Voice: is normal, 18:10 Neck: ROM/movement: is normal, is supple, without pain, no range of motions limitations, no meningismus, no nuchal rigidity, Lymph nodes: no appreciated lymphadenopathy, 18:10 Chest/axilla: Inspection: normal, 18:10 Cardiovascular: Rate: normal, Rhythm: regular, 18:10 Respiratory: the patient does not display signs of respiratory distress, Respirations: normal, no use of accessory muscles, no retractions, labored breathing, is not present, Breath sounds: are clear throughout, no decreased breath sounds, no stridor, no wheezing, 18:10 Abdomen/GI: Exam negative for discomfort, distension, guarding, Inspection: abdomen appears normal, 18:10 Neuro: Orientation: to person, place \T\ time. Mentation: is normal, Motor: moves all fours, strength is normal, Vital Signs: 17:28 BP 147 / 94; Pulse 89; Resp 16; Temp 98.6(O); Pulse Ox 100% ; Weight 88.45 kg; Height 5 cm10 ft. 9 in. ; Pain 8/10; 20:29 BP 126 / 94; Pulse 77; Resp 16; Pulse Ox 100% ; vc1 22:01 BP 128 / 86; Pulse 86; Resp 16; Temp 98.6; Pulse Ox 100% ; Pain 0/10; bm8 23:00 BP 109 / 85; Pulse 81; Resp 16; Pulse Ox 98% ; vc1 23:53 BP 106 / 84; Pulse 84; Resp 17; Temp 98.5; Pulse Ox 100% ; Pain 0/10; bm8 17:28 Body Mass Index 28.80 (88.45 kg, 175.26 cm) cm10 17:28 Pain Scale: Adult cm10 22:01 Pain Scale: Adult bm8 23:53 Pain Scale: Adult bm8 [place] Coma Score: 22:01 Eye Response: spontaneous(4). Motor Response: obeys commands(6). Verbal Response: bm8 oriented(5). Total: 15. 23:53 Eye Response: spontaneous(4). Motor Response: obeys commands(6). Verbal Response: bm8 oriented(5). Total: 15. Procedures: 23:50 I \T\ D: Incision and drainage was performed for an abscess of the left lower gumline cp Anesthetized with 6 ml's 2% Lidocaine. left mandibular block. Drained small amount purulent fluid. bloody fluid. the patient tolerated the procedure well, 18 gauge needle used to aspirate. MDM: 18:18 Medical Screening Exam initiated ame 20:00 Differential diagnosis: sepsis, osteomyelitis, dental abscess. 23:47 Data reviewed: vital signs, nurses notes, lab test result(s), radiologic studies, CT cp scan, I have discussed the patient's presentation/case with the attending Emergency Department Physician; and as a result, I will discharge patient. 23:48 I considered the following discharge prescriptions or medication management in the emergency department Medications were administered in the Emergency Department. See MAR. 23:48 Counseling: I had a detailed discussion with the patient and/or guardian regarding the historical points, exam findings, and any diagnostic results supporting the discharge/admit diagnosis, lab results, radiology results, the need for outpatient follow up, a dentist, to return to the emergency department if symptoms worsen or persist or if there are any questions or concerns that arise at home. Response to treatment: the patient's symptoms have mildly improved after treatment, and as a result, I will discharge patient. 08/09 17:52 Order name: Urinalysis w/ reflexes; Complete Time: 20:00 cp 08/09 22:09 Interpretation: Normal except: Urine SG > 1.030; UPROT TRACE; UUROB 1+; URBC 5-10; BYST cp Trace. 08/09 17:52 Order name: Test, Urine; Complete Time: 20:00 cp 08/09 17:52 Order name: CBC with Diff; Complete Time: 21:13 cp 08/09 17:52 Order name: CMP; Complete Time: 21:13 cp 08/09 19:29 Order name: CT Facial Bones W/ Con \T\ Mpr; Complete Time: 22:07 cp 08/09 17:52 Order name: Accucheck; Complete Time: 18:56 cp 08/09 17:52 Order name: Cardiac monitoring; Complete Time: 18:37 cp 08/09 17:52 Order name: IV Saline Lock - Large Bore; Complete Time: 18:55 cp 08/09 17:52 Order name: Labs collected and sent; Complete Time: 18:56 08/09 17:52 Order name: O2 Per Protocol; Complete Time: 18:37 08/09 17:52 Order name: O2 Sat Monitoring; Complete Time: 18:37 08/09 17:52 Order name: Vital Signs; Complete Time: 18:37 08/09 19:07 Order name: Misc. Order: lab redraw; Complete Time: 20:45 08/09 22:18 Order name: I\T\D Setup; Complete Time: 23:06 cp Administered Medications: 19:24 Drug: morphine IVP or IV 4 mg IVP once over 4 mins Route: IVP; Infused Over: 4 mins; bm8 Site: left antecubital; 20:32 Follow up: Response: No adverse reaction; Marked relief of symptoms; Pain is decreased vc1 20:45 Follow up: Response: No adverse reaction bm8 21:40 Drug: Clindamycin IVPB 900 mg IVPB once over 30 mins; (mix in 50 mL) Route: IVPB; vc1 Infused Over: 30 mins; Site: left antecubital; 22:29 Follow up: Response: No adverse reaction; IV Status: Completed infusion; IV Intake: [id number] 21:40 Drug: Ketorolac IVP 15 mg IVP once Route: IVP; Site: left antecubital; vc1 22:29 Follow up: Response: No adverse reaction bm8 23:05 Drug: Lidocaine Infiltration (2 %) 10 ml 5 ml Infiltration once; to bedside. with bm8 epinephrine {Note: administered by provider.} Volume: 5 ml; Route: Infiltration; 23:54 Follow up: Response: No adverse reaction 8 23:05 Drug: morphine IVP or IV 4 mg IVP once over 4 mins Route: IVP; Infused Over: 4 mins; bm8 Site: left antecubital; 23:54 Follow up: Response: No adverse reaction bm8 Disposition: 08/10 16:13 Chart complete. cp Disposition Summary: 08/09/24 23:48 Discharge Ordered Notes: Location: Home cp Problem: new cp Symptoms: have improved cp Condition: Stable cp Diagnosis - Disorder of teeth and supporting structures, unspecified - lower left molar dental cp abscess Followup: cp - With: Angus Hobbs DDS - When: 5 - 6 days - Reason: Recheck today's complaints Discharge Instructions: - Discharge Summary Sheet cp - Dental Abscess cp - Dental Pain cp Forms: - Medication Reconciliation Form cp - Antibiotic Education cp - Prescription Opioid Use cp - Patient Portal Instructions cp - Leadership Thank You Letter cp - Work release form bm8 Prescriptions: - Clindamycin HCl 300 mg Oral Capsule - take 1 capsule ORAL route every 6 hours for 10 days; 40 capsule; Refills: 0, cp Product Selection Permitted - Ibuprofen 800 mg Oral Tablet - take 1 tablet ORAL route every 8 hours As needed take with food; 30 tablet; cp Refills: 0, Product Selection Permitted - Tramadol 50 mg Oral Tablet - take 1 tablet ORAL route every 8 hours as needed; 12 tablet; Refills: 0, cp Product Selection Permitted Signatures: Dispatcher [employer] EDPrashanth Torres MD MD cha Pinkerton, Shawna sp Page, Corey, PA PA cp Rose Meyer, RN RN vc1 Margy Torres, RN RN cm10 Nilson Bahena, RN RN bm8 Corrections: (The following items were deleted from the chart) 16:11 00:00 I \T\ D: Incision and drainage was performed for an abscess of the left lower cp gumline Anesthetized with 6 ml's 2% Lidocaine. left mandibular block. Drained small amount purulent fluid. bloody fluid. the patient tolerated the procedure well, 18 gauge needle used to aspirate. cp
--- NOTE | 2024-08-09 23:49 | ER ---
Nurse's Notes [facility] Name: Max Johnson Age: 38 yrs Sex: Female : 1985 Arrival Date: 08/09/2024 Time: 17:17 Bed 5 Private MD: Diagnosis: Disorder of teeth and supporting structures, unspecified-lower left molar dental abscess Presentation: 08/09 17:28 Chief complaint: Patient states: toothache to left lower side onset yesterday. Pt cm10 reports taking OTC medication with no relief. Coronavirus screen: Client denies travel out of the [place] in the last 14 days. Ebola Screen: Patient denies travel to an Ebola-affected area in the 21 days before illness onset. No symptoms or risks identified at this time. Initial Sepsis Screen: Does the patient meet any 2 criteria? No. Patient's initial sepsis screen is negative. Does the patient have a suspected source of infection? No. Patient's initial sepsis screen is negative. Risk Assessment: Do you want to hurt yourself or someone else? Patient reports no desire to harm self or others. Onset of symptoms was August 08, 2024. 17:28 Method Of Arrival: Ambulatory cm10 17:28 Acuity: FATMATA 4 cm10 Triage Assessment: 17:29 General: Appears in no apparent distress. uncomfortable, Behavior is calm, cooperative. cm10 Pain: Complains of pain in lower left first molar and lower left second bicuspid Pain currently is 8 out of 10 on a pain scale. EENT: Dental caries noted in lower left first molar (#19) and lower left second bicuspid (#20) Reports pain in lower left first molar and lower left second bicuspid. Neuro: No deficits noted. Level of Consciousness is awake, alert, obeys commands, Oriented to person, place, time, situation, Appropriate for age. Respiratory: No deficits noted. Airway is patent Respiratory effort is even, unlabored, Respiratory pattern is regular, symmetrical. 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 - Infectious Disease History:: Denies. - Social history:: Smoking status: Patient denies any tobacco usage or history of. Screenin:30 [facility] ED Fall Risk Assessment (Adult) History of falling in the last 3 months, ko1 including since admission No falls in past 3 months (0 pts) Confusion or Disorientation No (0 pts) Intoxicated or Sedated No (0 pts) Impaired Gait No (0 pts) Mobility Assist Device Used No (0 pt) Altered Elimination No (0 pt) Score/Fall Risk Level 0 - 2 = Low Risk Oriented to surroundings, Maintained a safe environment, Educated pt \T\ family on fall prevention, incl call for assistance when getting out of bed, Assessed \T\ reinforced patient's understanding of fall precautions, Provided non-skid footwear. Abuse screen: Denies threats or abuse. Denies injuries from another. Nutritional screening: No deficits noted. Tuberculosis screening: No symptoms or risk factors identified. Assessment: 17:30 General: Appears in no apparent distress. uncomfortable. Pain: Complains of pain in ko1 lower left second bicuspid (#20) and lower left first molar (#19) and lower left second bicuspid and lower left first molar. Neuro: No deficits noted. Cardiovascular: No deficits noted. Respiratory: No deficits noted. GI: No deficits noted. : No deficits noted. EENT: No deficits noted. Derm: No deficits noted. Musculoskeletal: No deficits noted. 20:32 Reassessment: Patient and/or family updated on plan of care and expected duration. Pain vc1 level reassessed. Patient is alert, oriented x 3, equal unlabored respirations, skin warm/dry/pink. Patient states feeling better. Patient states symptoms have improved. 22:01 Reassessment: Patient appears in no apparent distress at this time. Patient and/or bm8 family updated on plan of care and expected duration. Pain level reassessed. Patient is alert, oriented x 3, equal unlabored respirations, skin warm/dry/pink. Patient denies pain at this time. Patient states feeling better. Patient states symptoms have improved. 23:01 Reassessment: Patient appears in no apparent distress at this time. No changes from vc1 previously documented assessment. Patient and/or family updated on plan of care and expected duration. Pain level reassessed. Patient is alert, oriented x 3, equal unlabored respirations, skin warm/dry/pink. 23:53 Reassessment: Patient appears in no apparent distress at this time. Patient and/or bm8 family updated on plan of care and expected duration. Pain level reassessed. Patient is alert, oriented x 3, equal unlabored respirations, skin warm/dry/pink. Patient denies pain at this time. Patient states feeling better. Patient states symptoms have improved. Vital Signs: 17:28 BP 147 / 94; Pulse 89; Resp 16; Temp 98.6(O); Pulse Ox 100% ; Weight 88.45 kg; Height 5 cm10 ft. 9 in. ; Pain 8/10; 20:29 BP 126 / 94; Pulse 77; Resp 16; Pulse Ox 100% ; vc1 22:01 BP 128 / 86; Pulse 86; Resp 16; Temp 98.6; Pulse Ox 100% ; Pain 0/10; bm8 23:00 BP 109 / 85; Pulse 81; Resp 16; Pulse Ox 98% ; vc1 23:53 BP 106 / 84; Pulse 84; Resp 17; Temp 98.5; Pulse Ox 100% ; Pain 0/10; bm8 17:28 Body Mass Index 28.80 (88.45 kg, 175.26 cm) cm10 17:28 Pain Scale: Adult cm10 22:01 Pain Scale: Adult bm8 23:53 Pain Scale: Adult bm8 [place] Coma Score: 22:01 Eye Response: spontaneous(4). Motor Response: obeys commands(6). Verbal Response: bm8 oriented(5). Total: 15. 23:53 Eye Response: spontaneous(4). Motor Response: obeys commands(6). Verbal Response: bm8 oriented(5). Total: 15. ED Course: 17:19 Patient arrived in ED. mg5 17:25 Prashanth Mendiola PA is PHCP. cp 17:25 Prashanth Rey MD is Attending Physician. cp 17:29 Triage completed. cm10 17:30 Arm band placed on right wrist. Patient placed in waiting room. cm10 17:30 Patient has correct armband on for positive identification. Placed in gown. Bed in low ko1 position. Call light in reach. Side rails up X 1. Provided Education on: labs, meds. Pulse ox on. NIBP on. Door closed. Noise minimized. Lights dimmed. Warm blanket given. Pillow given. Assisted to bathroom. 17:30 Initial lab(s) drawn, by me, sent to lab. ko1 18:41 Test, Urine Sent. ko1 18:41 Urinalysis w/ reflexes Sent. ko1 18:56 CBC with Diff Sent. ko1 18:56 CMP Sent. ko1 19:00 Inserted saline lock: 20 gauge in left antecubital area, using aseptic technique. Blood bm8 collected. Flushed with 10 mL NS. 19:24 Nilson Bahena, RN is Primary Nurse. bm8 19:29 Jensen Shaffer MD is Attending Physician. cp 21:17 CT Facial Bones W/ Con \T\ Mpr In Process Unspecified. EDMS 22:01 No provider procedures requiring assistance completed. bm8 23:07 Assist provider with I \T\ D: of an abscess on left jaw line Set up I\T\D tray. Performed bm 8 by Prashanth BRANDON Patient tolerated well. 23:47 Angus Hobbs DDS is Referral Physician. cp 23:53 IV discontinued, intact, bleeding controlled, No redness/swelling at site. Pressure bm8 dressing applied. Administered Medications: 19:24 Drug: morphine IVP or IV 4 mg IVP once over 4 mins Route: IVP; Infused Over: 4 mins; bm8 Site: left antecubital; 20:32 Follow up: Response: No adverse reaction; Marked relief of symptoms; Pain is decreased vc1 20:45 Follow up: Response: No adverse reaction bm8 21:40 Drug: Clindamycin IVPB 900 mg IVPB once over 30 mins; (mix in 50 mL) Route: IVPB; vc1 Infused Over: 30 mins; Site: left antecubital; 22:29 Follow up: Response: No adverse reaction; IV Status: Completed infusion; IV Intake: 20budu3 21:40 Drug: Ketorolac IVP 15 mg IVP once Route: IVP; Site: left antecubital; vc1 22:29 Follow up: Response: No adverse reaction bm8 23:05 Drug: Lidocaine Infiltration (2 %) 10 ml 5 ml Infiltration once; to bedside. with bm8 epinephrine {Note: administered by provider.} Volume: 5 ml; Route: Infiltration; 23:54 Follow up: Response: No adverse reaction bm8 23:05 Drug: morphine IVP or IV 4 mg IVP once over 4 mins Route: IVP; Infused Over: 4 mins; bm8 Site: left antecubital; 23:54 Follow up: Response: No adverse reaction bm8 Medication: 22:01 VIS not applicable for this client. bm8 Intake: 22:29 IV: 50ml; Total: 50ml. bm8 Outcome: 23:48 Discharge ordered by . cp 23:53 Discharged to home ambulatory, bm8 23:53 Condition: stable 23:53 Discharge instructions given to patient, Instructed on discharge instructions, follow up and referral plans. no drinking with medication, no driving heavy equipment, medication usage, safety practices, wound care, Demonstrated understanding of instructions, follow-up care, medications, Prescriptions given X 3, 23:55 Patient left the ED. bm8 Signatures: Dispatcher [employer] EDMS Prashanth Mendiola PA PA cp Calcote, Vanessa RN RN vc1 Fabby Wills RN RN ko1 Margy Torres RN RN cm10 Felisha Alexandra mg5 Nilson Bahena RN RN bm8 Corrections: (The following items were deleted from the chart) 23:09 23:07 Assist provider with I \T\ D: of an abscess on bm8 bm8
[2024-08-10 00:16] VITALS: BP 106/84; TEMP 98.5; O2SAT 100
== END 2024-08-09 23:55 | disposition home or self-care (01) ==
LOC: ER 17:17
DX: K04.7 Periapical abscess without sinus (principal)
CPT/HCPCS: 36415; 70487; 76377; 80053; 81001; 81025; 85025; 96365; 96375; 99285; J2003; Q9967